=== PATIENT | male | born 1950 | race Caucasian/White ===

== ENCOUNTER 2016-11-09 05:38 | Day surgery (SDC) | payer BC ==
--- NOTE | ~2016-11-09 | EGD ---
EGD REPORT [facility] [address] [address] NAME: FRED GREER : [birth year] STATUS : REG [facility] [place] PAT#: [id number] AGE: 66 ADM/REG DATE : 11/09/16 MR#: [id number] REPORT SERV DATE: 11/09/16 DICTATED BY: ALLISON LUIS DATE: 11/09/16 REPORT STATUS : Draft TRANSCRIBED BY: [employer] DATE: 11/09/16 [facility] Patient Name: Fred Greer Date of : 1950 Attending MD: ALLISON LUIS, Procedure Date No Time: 11/09/2016 Procedure: Colonoscopy Indications: Chronic diarrhea Referring MD: ISABEL WHITAKER MD Medicines: Monitored Anesthesia Care Complications: No immediate complications. Estimated blood loss: None. Procedure: Pre-Anesthesia Assessment: - ASA Grade Assessment: IV - A patient with severe systemic disease that is a constant threat to life. After I obtained informed consent, the scope was passed under direct vision. Throughout the procedure, the patient's blood pressure, pulse, and oxygen saturations were monitored continuously. The CF [id number] was introduced through the anus and advanced to the terminal ileum. The colonoscopy was performed without difficulty. The patient tolerated the procedure well. The quality of the bowel preparation was good. Findings: The perianal and digital rectal examinations were normal. A patchy area of mucosa in the abraham-terminal ileum was mildly erythematous. Biopsies were taken with a cold forceps for histology. Verification of patient identification for the specimen was done. Estimated blood loss was minimal. There was evidence of a prior end-to-end ileo-colonic anastomosis at 28 cm proximal to the anus. This was patent. Normal mucosa was found in the rectum and in the recto-sigmoid colon. Biopsies were taken with a cold forceps for histology. Verification of patient identification for the specimen was done. Estimated blood loss was minimal. Internal hemorrhoids were found during retroflexion and were Grade II (internal hemorrhoids that prolapse but reduce spontaneously). The exam was otherwise without abnormality on direct and retroflexion views. Impression: - Erythematous mucosa in the abraham-terminal ileum. Biopsied. - Patent end-to-end ileo-colonic anastomosis. - Normal mucosa in the rectum and in the recto-sigmoid colon. Biopsied. EGD REPORT [place] [id number] [facility] [place]. [address] NAME: FRED GREER : [birth year] STATUS : REG [facility]#: [id number] AGE: 66 ADM/REG DATE : 11/09/16 MR#: [id number] REPORT SERV DATE: 11/09/16 DICTATED BY: ALLISON LUIS DATE: 11/09/16 REPORT STATUS : Draft TRANSCRIBED BY: [employer] DATE: 11/09/16 - Internal hemorrhoids. - The examination was otherwise normal on direct and retroflexion views. Recommendation: - Patient has a contact number available for emergencies. The signs and symptoms of potential delayed complications were discussed with the patient. Return to normal activities tomorrow. Written discharge instructions were provided to the patient. - Return to previous diet. - Continue present medications. - Await pathology results. - Repeat colonoscopy for surveillance based on pathology results. Procedure Code(s): --- Professional --- 94420, Colonoscopy, flexible, proximal to splenic flexure; with biopsy, single or multiple Diagnosis Code(s): --- Professional --- K63.9, Disease of intestine, unspecified Z98.0, Intestinal bypass and anastomosis status K64.1, Second degree hemorrhoids K52.9, Noninfective gastroenteritis and colitis, unspecified CPT copyright 2013 [employer]. All rights reserved. The codes documented in this report are preliminary and upon plant safety leader review may be revised to meet current compliance requirements. ALLISON TOBY, 11/09/2016 8:02 AM Number of Addenda: 0 Note Initiated On: 11/09/2016 7:11 AM Scope Withdrawal Time 0 hours 0 minutes 0 seconds [address] [place] [address]
--- NOTE | ~2016-11-09 | EGD ---
EGD REPORT [facility] [address] [address] NAME: FRED GREER : [birth year] STATUS : REG [facility] [place] PAT#: [id number] AGE: 66 ADM/REG DATE : 11/09/16 MR#: [id number] REPORT SERV DATE: 11/09/16 DICTATED BY: ALLISON LUIS DATE: 11/09/16 REPORT STATUS : Draft TRANSCRIBED BY: [employer] DATE: 11/09/16 [facility] Patient Name: Fred Greer Date of : 1950 Attending MD: ALLISON LUSI, Procedure Date No Time: 11/09/2016 Procedure: Upper GI endoscopy Indications: Esophageal reflux Referring MD: ISABEL WHITAKER MD, LALA TATE Medicines: Monitored Anesthesia Care Complications: No immediate complications. Estimated blood loss: None. Procedure: Pre-Anesthesia Assessment: - ASA Grade Assessment: IV - A patient with severe systemic disease that is a constant threat to life. After obtaining informed consent, the endoscope was passed under direct vision. Throughout the procedure, the patient's blood pressure, pulse, and oxygen saturations were monitored continuously. The [facility] [id number] was introduced through the mouth, and advanced to the second part of duodenum. Findings: The esophagus was normal. Diffuse moderate inflammation characterized by adherent blood, erythema and friability was found in the entire examined stomach. Biopsies were taken with a cold forceps for histology. Verification of patient identification for the specimen was done. Estimated blood loss was minimal. The cardia and gastric fundus were normal on retroflexion. The exam of the stomach was otherwise normal. Patchy moderate inflammation characterized by erythema was found in the second part of the duodenum. Biopsies were taken with a cold forceps for histology. Verification of patient identification for the specimen was done. Estimated blood loss was minimal. The exam of the duodenum was otherwise normal. Impression: - Normal esophagus. - Gastritis. Biopsied. - Duodenitis. Biopsied. Recommendation: - Return to previous diet. - Continue present medications. - Await pathology results. Procedure Code(s): --- Professional --- EGD REPORT [facility] [address] [place], [place] [address] . [address] NAME: FRED GREER : [birth year] STATUS : REG [facility] [place] PAT#: [id number] AGE: 66 ADM/REG DATE : 11/09/16 MR#: [id number] REPORT SERV DATE: 11/09/16 DICTATED BY: ALLISON LUIS DATE: 11/09/16 REPORT STATUS : Draft TRANSCRIBED BY: [employer] DATE: 11/09/16 11964, Esophagogastroduodenoscopy, flexible, transoral; with biopsy, single or multiple Diagnosis Code(s): --- Professional --- K29.70, Gastritis, unspecified, without bleeding K29.80, Duodenitis without bleeding K21.9, Gastro-esophageal reflux disease without esophagitis CPT copyright 2013 [employer]. All rights reserved. The codes documented in this report are preliminary and upon pharmaceutical officer review may be revised to meet current compliance requirements. ALLISON LUIS, 11/09/2016 7:55 AM Number of Addenda: 0 Note Initiated On: 11/09/2016 7:11 AM Scope Withdrawal Time 0 hours 0 minutes [address] [place] [address] [place] [address]
[~2016-11-09 05:38] MED LIST: ASAB PO; B121000P IM; CENTRUM PO; DURA75 TOP; JANUVIA100 MG PO; LEVOTHYROXIN175 MCG PO; LEXAPRO20 PO; NEXIUM40 PO; P10 PO; PLAQ200B PO; PROBIOTIC; SALAGEN5 MG PO; VITAMIN D1000 UNI1 PO; VITE1000 PO; WELLXL300 PO; ZYRTEC ALLGY10 MG PO
== END 2016-11-09 23:59 | disposition home or self-care (01) ==
LOC: DMU 05:38
PROVIDERS: Internal Medicine Gastroenterology
PROC: 0DB68ZX Excision of Stomach, Via Natural or Artificial Opening Endoscopic, Diagnostic (ICD-10-PCS; 2016-11-09)
PROC: 0DB98ZX Excision of Duodenum, Via Natural or Artificial Opening Endoscopic, Diagnostic (ICD-10-PCS; 2016-11-09)
PROC: 0DBB8ZX Excision of Ileum, Via Natural or Artificial Opening Endoscopic, Diagnostic (ICD-10-PCS; principal; 2016-11-09 07:30)
PROC: 0DBN8ZX Excision of Sigmoid Colon, Via Natural or Artificial Opening Endoscopic, Diagnostic (ICD-10-PCS; 2016-11-09 07:30)
DX: K29.80 Duodenitis without bleeding (principal); K29.50 Unspecified chronic gastritis without bleeding; K63.5 Polyp of colon; K63.9 Disease of intestine, unspecified; Z98.0 Intestinal bypass and anastomosis status; K64.1 Second degree hemorrhoids; K52.9 Noninfective gastroenteritis and colitis, unspecified; K29.70 Gastritis, unspecified, without bleeding; K21.9 Gastro-esophageal reflux disease without esophagitis; M33.20 Polymyositis, organ involvement unspecified; J84.10 Pulmonary fibrosis, unspecified; Z99.81 Dependence on supplemental oxygen; E11.9 Type 2 diabetes mellitus without complications; E03.9 Hypothyroidism, unspecified; G89.29 Other chronic pain; Z90.49 Acquired absence of other specified parts of digestive tract
CPT/HCPCS: 82962; 88305; 88342